=== PATIENT | male | born 1990 | race American Indian/Alaskan Native ===

== ENCOUNTER 2019-01-12 11:43 | Emergency (ER) | payer SELFPAY ==
--- NOTE | 2019-01-12 12:10 | Emergency Department Report ---
Blank Doc - Documentation Documentation: This is a -year-old male that presents with hearing voices. Stated that his v oices are telling him to kill someone. Denies SI. This initial assessment/diagnostic orders/clinical plan/treatment(s) is/are subject to change based on patient's health status, clinical progression and re- assessment by fellow clinical providers in the ED. Further treatment and workup at subsequent clinical providers discretion. Patient/guardians urged not to elope from the ED as their condition may be serious if not clinically assessed and managed. Initial orders include: 1- Patient sent to MAIN ED for further evaluation and treatment 2- police department secretary was notified to have patient be brought back [place]. 3- RN was notified to keep patient as close range and observation until room available 4- Patient presents with substantial risk of imminent harm to self, appears to be so unable to care for his/her own physical health and safety as to create an imminently life-endangering crisis, and has committed/expressed life endangering crisis to self. Due to this and other complaints, patient is put on 1013.
[2019-01-12 12:38] LABS: Basophils % (Auto) 0.7 % (0.0-1.8); Eosinophils % (Auto) 0.3 % (0.0-4.3); Hematocrit 40.8 % (35.5-45.6); Hemoglobin 14.3 gm/dl (11.8-15.2); Lymphocytes # (Auto) 0.9 K/mm3 (1.2-5.4); Lymphocytes % (Auto) 22.9 % (13.4-35.0); Mean Corpuscular HGB Conc 35 % (32-34); Mean Corpuscular Volume 92 fl (84-94); Monocytes # (Auto) 0.2 K/mm3 (0.0-0.8); Monocytes % (Auto) 5.6 % (0.0-7.3); Platelet Count 160 K/mm3 (140-440); Red Blood Count 4.46 M/mm3 (3.65-5.03); Red Cell Distribution Width 13.3 % (13.2-15.2)
[2019-01-12 12:59] LABS: BUN/Creatinine Ratio 17; Blood Urea Nitrogen 15 mg/dL (9-20); Calcium 9.7 mg/dL (8.4-10.2); Hemolysis Index 18
--- NOTE | 2019-01-12 13:55 | Emergency Department Report ---
HPI - General Chief Complaint: Psych Time Seen by Provider: 01/12/19 12:11 - HPI HPI: 28-year-old -B[place] male presents to the emergency Department through triage with complaint of a three-day history of auditory hallucinations telling him to kill someone. He says that there is no one particular person that he has been told to harm. He denies any suicidal ideations or any visual hallucinations. The patient denies any previous diagnosed psychiatric history. He denies any medical history. He denies any illicit drug use or any recent alcohol abuse. ED Past Medical Hx - Past Medical History Previous Medical History?: No - Surgical History Past Surgical History?: Yes Additional Surgical History: Right leg - Social History Smoking Status: Never Smoker Substance Use Type: None ED Review of Systems ROS: Stated complaint: HEARING VOICES Other details as noted in HPI Comment: All other systems reviewed and negative Constitutional: denies: chills, fever Eyes: denies: eye pain, vision change ENT: denies: ear pain, throat pain Respiratory: denies: cough, shortness of breath Cardiovascular: denies: chest pain, palpitations Gastrointestinal: denies: abdominal pain, vomiting Genitourinary: denies: dysuria, frequency Musculoskeletal: denies: back pain, arthralgia Skin: denies: rash, lesions Neurological: denies: headache, weakness Psychiatric: auditory hallucinations, homicidal thoughts. denies: visual hallucinations, suicidal thoughts Physical Exam - Physical Exam Vital Signs: Vital Signs 01/12/19 12:10 Temperature 98.5 F Pulse Rate 64 Respiratory 16 Rate Blood Pressure 119/55 O2 Sat by Pulse 99 Oximetry Physical Exam: GENERAL: The patient is well-developed well-nourished. HENT: Normocephalic. Atraumatic. Patient has moist mucous membranes. EYES: Extraocular motions are intact. NECK: Supple. Trachea is midline. CHEST/LUNGS: Clear to auscultation. There is no respiratory distress noted. HEART/CARDIOVASCULAR: Regular. There is no tachycardia. There is no murmur. ABDOMEN: Abdomen is soft, nontender. Patient has normal bowel sounds. There is no abdominal distention. SKIN: Skin is warm and dry. NEURO: The patient is awake, alert, and oriented. The patient is cooperative. The patient has no focal neurologic deficits. The patient has normal speech. MUSCULOSKELETAL: There is no tenderness or deformity. There is no evidence of acute injury. ED Course Vital Signs 01/12/19 12:10 Temperature 98.5 F Pulse Rate 64 Respiratory 16 Rate Blood Pressure 119/55 O2 Sat by Pulse 99 Oximetry ED Medical Decision Making - Lab Data Result diagrams: 01/12/19 12:22 01/12/19 12:22 - Medical Decision Making This patient presented to triage with complaint of auditory hallucinations, command hallucinations causing suicidal ideations. At the time of my examination he is awake, calm, oriented but does admit to the symptoms. He was made a 1013 secondary to the suicidal ideations. Vital signs stable throughout his ED course. Labs have thus far been unremarkable including CBC, metabolic panel, urine drug screen and blood alcohol level. this may be previously undiagnosed schizophrenia. Patient is medically cleared for psychiatric placement. - Differential Diagnosis schizophrenia, schizoaffective, bipolar disorder, substance abuse Critical Care Time: No Critical care attestation.: If time is entered above; I have spent that time in minutes in the direct care of this critically ill patient, excluding procedure time. ED Disposition Clinical Impression: Auditory hallucinations, Suicidal ideations Disposition: DC/TX-65 PSY HOSP/PSY UNIT Is pt being admited?: No Condition: Stable Referrals: AIDA RODRIGUEZ MD [Primary Care Provider] - 3-5 Days Time of Disposition: 15:44
[2019-01-12 14:17] LABS: Bilirubin,Urine NEG (Negative); Blood,Urine NEG (Negative); Color,Urine Yellow (Yellow); Mucus,Urine 2+ /HPF; Protein,Urine <15 mg/dL mg/dL (Negative)
[2019-01-12 14:19] LABS: Amphetamine Screen,Urine PRESUMPTIVE NEGATIVE; Benzodiazepines Screen,Urine PRESUMPTIVE NEGATIVE; Cannabinoid Screen,Urine PRESUMPTIVE NEGATIVE; Cocaine Screen,Urine PRESUMPTIVE NEGATIVE; Methadone Screen,Urine PRESUMPTIVE NEGATIVE; Opiate Screen,Urine PRESUMPTIVE NEGATIVE
--- NOTE | 2019-01-12 14:41 | Consultation ---
History of Present Illness - Reason for Consult Consult date: 01/12/19 Reason for consult: Mental Health Evaluation Requesting physician: INÉS NULL - Chief Complaint Chief complaint: "i am heating voices" - History of Present Psychiatric Illness 28 y.o. AA male who presented to the ER for command AH's. Today the patient the was calm, but preoccupied during the assessment. He stated that the voices have been active for several days telling him to kill someone. He stated, "I'm ignoring the voices. " He stated that he started hearing voices after he ran out of medication he cannot name when asked. His answers to most questions were not logical. Throughout the interview, he appeared that he was responding to some type of stimuli. Also, he had to be redirected several times to keep him on topic. At this time, the patient is a poor historian. He denies SI/HI's. Medications and Allergies Allergies Allergy/AdvReac Type Severity Reaction Status Date / Time No Known Allergies Allergy Unverified 01/12/19 11:53 Home Medications Medication Instructions Recorded Confirmed Last Taken Type No Known Home Medications [No 01/12/19 01/12/19 Unknown History Reported Home Medications] Past psychiatric history - Past Medical History Past Medical History: No medical history Past Surgical History: No surgical history - past Psychiatric treatment and history psychiatric treatment history: Hx of "mental health" per the patients. Denies a fam psy hx. - Social History Social history: Lives alone Mental Status Exam - Vital signs Last Vital Signs Temp 98.5 F 01/12/19 14:11 Pulse 60 01/12/19 14:11 Resp 18 01/12/19 14:11 BP 116/87 01/12/19 14:11 Pulse Ox 100 01/12/19 14:11 - Exam Narrative exam: MSE: Appearance: cooperative Behavior: regular eye contact Speech: regular rate and tone Mood: preoccupied Affect: congruent to mood Thought Process: circumstantial Thought Content: denies SI/HI's and VH's, paranoid Motor Activity: ambulatory Cognition: A/O x3 Insight: poor Judgment: poor Results Result Diagrams: 01/12/19 12:22 01/12/19 12:22 Abnormal lab results 01/12/19 01/12/19 01/12/19 Range/Units 12:22 12:22 12:22 WBC 4.0 L (4.5-11.0) K/mm3 MCHC 35 H (32-34) % Lymph # 0.9 L (1.2-5.4) K/mm3 Seg Neutrophils % 70.5 H (40.0-70.0) % Salicylates < 0.3 L (2.8-20.0) mg/dL Acetaminophen < 5.0 L (10.0-30.0) ug/mL All other labs normal. Assessment and Plan Assessment and plan: Impression: Unspecified Psychosis. Today the patient was cooperative, but preoccupied during the assessment. UDS is megative. DDx: Bipolar DO with psychosis, Schizophrenia Recommendation/Plan: Continue 1013 and start Zyprexa 5 mg PO HS for psychosis. Attempted to discuss possible metabolic side effects of Zyprexa with the patient. Dispo: The patient was referred to inpatient psy services. Staffed with Dr Santa Lopez.
[2019-01-13 08:13] VITALS: BP 116/75
--- NOTE | 2019-01-13 11:32 | Progress Note ---
Subjective - Reason for Consult Consult date: 01/13/19 Reason for consult: Psychiatry Follow-up - Chief Complaint Chief complaint: "I don't know what's wrong with me" 28 y.o. AA male who presented to the ER for command AH's. Today the patient the was calm, but still preoccupied during the assessment. He stated that the voices are not as active today, but he feel like something isn't right with him. He was able to state that he does take Zyprexa that was prescribed by a psychiatrist. He is vague about his overall mental health when asked. He denies SI/HI's and VH's. He denies any side effects of his medication. Mental Status Exam - Vital signs Last Vital Signs Temp 98.2 F 01/13/19 08:13 Pulse 54 L 01/13/19 08:13 Resp 18 01/13/19 08:13 BP 116/75 01/13/19 08:13 Pulse Ox 99 01/13/19 08:13 - Exam Narrative exam: MSE: Appearance: cooperative Behavior: regular eye contact Speech: regular rate and tone Mood: still preoccupied Affect: congruent to mood Thought Process: circumstantial Thought Content: denies SI/HI's and VH's, paranoid Motor Activity: ambulatory Cognition: A/O x3 Insight: poor Judgment: poor Assessment and Plan Impression: Unspecified Psychosis. Today the patient was cooperative, but still preoccupied during the assessment. UDS is negative. DDx: Bipolar DO with psychosis, Schizophrenia Recommendation/Plan: Continue 1013 and Zyprexa 5 mg PO HS for psychosis. Discussed possible metabolic side effects of Zyprexa with the patient, he verbalized understanding. Dispo: The patient was referred to inpatient psy services. Will staff with Dr Santa Lopez.
== END 2019-01-13 14:49 ==
LOC: ED 11:43 → EEVIPCON 11:43 → ED 01-13 14:49
DX: R44.0 Auditory hallucinations (principal); R45.851 Suicidal ideations
CPT/HCPCS: 36415; 80048; 80307; 81001; 85025; 99285; G0480; 80320

== ENCOUNTER 2019-01-28 19:23 | Emergency (ER) | payer OTHER ==
[2019-01-28] MEDS ORDERED: ATIVAN IM PRN (20:20)
[2019-01-28] MEDS ORDERED: HALDOL IM PRN (20:20)
--- NOTE | 2019-01-28 20:21 | Emergency Department Report ---
ED Psych HPI - General Chief Complaint: Psych Stated Complaint: SUICIDAL IDEATION Time Seen by Provider: 01/28/19 20:15 Source: patient, EMS (ems notes not available at time of chart dictation), RN notes reviewed, old records reviewed Mode of arrival: Ambulatory Limitations: No Limitations - History of Present Illness Initial Comments: This is a cooperative 28-year-old gentleman, with a history of undifferentiated psychosis, presenting with a complaint of command hallucinations, which are telling him to kill himself and hurt himself. The patient does not have a specific method in mind to harm himself. He denies physical pain. He denies other complaints. He denies intentional overdose. He is not sure what caused these symptoms. He denies physical trauma. The symptoms are constant, do not radiate anywhere, do not have exacerbating or relieving factors. MD Complaint: suicidal ideation, other -: Gradual Associated Psychiatric Symptoms: suicidal ideation, auditory hallucinations History of same: Yes Quality: constant Improves With: none Worsens With: none If Self Harm: admits thoughts of - Related Data Home Medications Medication Instructions Recorded Confirmed Last Taken No Known Home Medications [No 01/12/19 01/28/19 Unknown Reported Home Medications] Allergies Allergy/AdvReac Type Severity Reaction Status Date / Time No Known Allergies Allergy Unverified 01/12/19 11:53 ED Review of Systems ROS: Stated complaint: SUICIDAL IDEATION Other details as noted in HPI Comment: All other systems reviewed and negative Psychiatric: suicidal thoughts. denies: depression, homicidal thoughts ED Past Medical Hx - Past Medical History Hx Psychiatric Treatment: No (denies) - Surgical History Additional Surgical History: Right leg - Social History Smoking Status: Current Every Day Smoker - Medications Home Medications: Home Medications Medication Instructions Recorded Confirmed Last Taken Type No Known Home Medications [No 01/12/19 01/28/19 Unknown History Reported Home Medications] ED Physical Exam - General Limitations: No Limitations General appearance: alert, in no apparent distress - Head Head exam: Present: atraumatic, normocephalic - Eye Eye exam: Present: normal appearance, EOMI. Absent: nystagmus - ENT ENT exam: Present: normal exam, normal orophraynx, mucous membranes moist, normal external ear exam - Neck Neck exam: Present: normal inspection, full ROM. Absent: tenderness, meningismus - Respiratory Respiratory exam: Present: normal lung sounds bilaterally. Absent: respiratory distress - Cardiovascular Cardiovascular Exam: Present: regular rate, normal rhythm, normal heart sounds. Absent: bradycardia, tachycardia, irregular rhythm, systolic murmur, diastolic murmur, rubs, gallop - GI/Abdominal GI/Abdominal exam: Present: soft. Absent: distended, tenderness, guarding, rebound, rigid, pulsatile mass - Rectal Rectal exam: Present: deferred - Extremities Exam Extremities exam: Present: normal inspection, full ROM, other (2+ pulses noted in the bilateral upper, lower extremities. Compartments soft. No long bony tenderness. The pelvis is stable.). Absent: pedal edema, joint swelling, calf tenderness - Back Exam Back exam: Present: normal inspection, full ROM. Absent: tenderness, CVA tenderness (R), CVA tenderness (L), paraspinal tenderness, vertebral tenderness - Neurological Exam Neurological exam: Present: alert, oriented X3, other (Extraocular movements intact. Tongue midline. No facial droop. Facial sensation intact to light touch in the V1, V2, V3 distribution bilaterally. 5 and 5 strength in 4 extremities.. Sensation is intact to light touch in 4 extremities.). Absent: motor sensory deficit - Psychiatric Psychiatric exam: Present: flat affect - Skin Skin exam: Present: warm, dry, intact, normal color, other (numerous lesions suggestive of chronic keloids. No appearance of superinfection at this time.). Absent: rash ED Course Vital Signs 01/28/19 20:13 Temperature 98.3 F Pulse Rate 73 Respiratory 18 Rate Blood Pressure 127/68 [Left] O2 Sat by Pulse 98 Oximetry ED Medical Decision Making - Lab Data Result diagrams: 01/28/19 20:31 01/28/19 20:31 Vital Signs 01/28/19 20:13 Temperature 98.3 F Pulse Rate 73 Respiratory 18 Rate Blood Pressure 127/68 [Left] O2 Sat by Pulse 98 Oximetry Lab Results 01/28/19 01/28/19 01/28/19 Range/Units 20:31 20:31 20:31 WBC (4.5-11.0) K/mm3 RBC (3.65-5.03) M/mm3 Hgb (11.8-15.2) gm/dl Hct (35.5-45.6) % MCV (84-94) fl MCH (28-32) pg MCHC (32-34) % RDW (13.2-15.2) % Plt Count (140-440) K/mm3 Lymph % (Auto) (13.4-35.0) % Luna % (Auto) (0.0-7.3) % Eos % (Auto) (0.0-4.3) % Baso % (Auto) (0.0-1.8) % Lymph # (1.2-5.4) K/mm3 Luna # (0.0-0.8) K/mm3 Eos # (0.0-0.4) K/mm3 Baso # (0.0-0.1) K/mm3 Seg Neutrophils % (40.0-70.0) % Seg Neutrophils # (1.8-7.7) K/mm3 Sodium 140 (137-145) mmol/L Potassium 4.3 (3.6-5.0) mmol/L Chloride 100.8 (98-107) mmol/L Carbon Dioxide 28 (22-30) mmol/L Anion Gap 16 mmol/L BUN 13 (9-20) mg/dL Creatinine 1.1 (0.8-1.5) mg/dL Estimated GFR > 60 ml/min BUN/Creatinine Ratio 12 % Glucose 100 (75-100) mg/dL Calcium 9.8 (8.4-10.2) mg/dL Total Creatine Kinase (55-170) units/L Urine Color (Yellow) Urine Turbidity (Clear) Urine pH (5.0-7.0) Ur Specific [place] (1.003-1.030) Urine Protein (Negative) mg/dL Urine Glucose (UA) (Negative) mg/dL Urine Ketones (Negative) mg/dL Urine Blood (Negative) Urine Nitrite (Negative) Urine Bilirubin (Negative) Urine Urobilinogen (<2.0) mg/dL Ur Leukocyte Esterase (Negative) Urine WBC (Auto) (0.0-6.0) /HPF Urine RBC (Auto) (0.0-6.0) /HPF U Epithel Cells (Auto) (0-13.0) /HPF Urine Bacteria (Auto) (Negative) /HPF Urine Mucus /HPF Salicylates < 0.3 L (2.8-20.0) mg/dL Urine Opiates Screen Urine Methadone Screen Acetaminophen < 5.0 L (10.0-30.0) ug/mL Ur Barbiturates Screen Ur Phencyclidine Scrn Ur Amphetamines Screen U Benzodiazepines Scrn Urine Cocaine Screen U Marijuana (THC) Screen Drugs of Abuse Note Plasma/Serum Alcohol (0-0.07) % 01/28/19 01/28/19 01/28/19 Range/Units 20:31 20:31 20:31 WBC 2.8 L (4.5-11.0) K/mm3 RBC 4.55 (3.65-5.03) M/mm3 Hgb 14.4 (11.8-15.2) gm/dl Hct 41.6 (35.5-45.6) % MCV 91 (84-94) fl MCH 32 (28-32) pg MCHC 35 H (32-34) % RDW 13.1 L (13.2-15.2) % Plt Count 164 (140-440) K/mm3 Lymph % (Auto) 30.7 (13.4-35.0) % Luna % (Auto) 4.6 (0.0-7.3) % Eos % (Auto) 2.1 (0.0-4.3) % Baso % (Auto) 0.7 (0.0-1.8) % Lymph # 0.9 L (1.2-5.4) K/mm3 Luna # 0.1 (0.0-0.8) K/mm3 Eos # 0.1 (0.0-0.4) K/mm3 Baso # 0.0 (0.0-0.1) K/mm3 Seg Neutrophils % 61.9 (40.0-70.0) % Seg Neutrophils # 1.7 L (1.8-7.7) K/mm3 Sodium (137-145) mmol/L Potassium (3.6-5.0) mmol/L Chloride (98-107) mmol/L Carbon Dioxide (22-30) mmol/L Anion Gap mmol/L BUN (9-20) mg/dL Creatinine (0.8-1.5) mg/dL Estimated GFR ml/min BUN/Creatinine Ratio % Glucose (75-100) mg/dL Calcium (8.4-10.2) mg/dL Total Creatine Kinase 149 (55-170) units/L Urine Color (Yellow) Urine Turbidity (Clear) Urine pH (5.0-7.0) Ur Specific [place] (1.003-1.030) Urine Protein (Negative) mg/dL Urine Glucose (UA) (Negative) mg/dL Urine Ketones (Negative) mg/dL Urine Blood (Negative) Urine Nitrite (Negative) Urine Bilirubin (Negative) Urine Urobilinogen (<2.0) mg/dL Ur Leukocyte Esterase (Negative) Urine WBC (Auto) (0.0-6.0) /HPF Urine RBC (Auto) (0.0-6.0) /HPF U Epithel Cells (Auto) (0-13.0) /HPF Urine Bacteria (Auto) (Negative) /HPF Urine Mucus /HPF Salicylates (2.8-20.0) mg/dL Urine Opiates Screen Urine Methadone Screen Acetaminophen (10.0-30.0) ug/mL Ur Barbiturates Screen Ur Phencyclidine Scrn Ur Amphetamines Screen U Benzodiazepines Scrn Urine Cocaine Screen U Marijuana (THC) Screen Drugs of Abuse Note Plasma/Serum Alcohol < 0.01 (0-0.07) % 01/28/19 01/28/19 Range/Units 20:39 20:39 WBC (4.5-11.0) K/mm3 RBC (3.65-5.03) M/mm3 Hgb (11.8-15.2) gm/dl Hct (35.5-45.6) % MCV (84-94) fl MCH (28-32) pg MCHC (32-34) % RDW (13.2-15.2) % Plt Count (140-440) K/mm3 Lymph % (Auto) (13.4-35.0) % Luna % (Auto) (0.0-7.3) % Eos % (Auto) (0.0-4.3) % Baso % (Auto) (0.0-1.8) % Lymph # (1.2-5.4) K/mm3 Luna # (0.0-0.8) K/mm3 Eos # (0.0-0.4) K/mm3 Baso # (0.0-0.1) K/mm3 Seg Neutrophils % (40.0-70.0) % Seg Neutrophils # (1.8-7.7) K/mm3 Sodium (137-145) mmol/L Potassium (3.6-5.0) mmol/L Chloride (98-107) mmol/L Carbon Dioxide (22-30) mmol/L Anion Gap mmol/L BUN (9-20) mg/dL Creatinine (0.8-1.5) mg/dL Estimated GFR ml/min BUN/Creatinine Ratio % Glucose (75-100) mg/dL Calcium (8.4-10.2) mg/dL Total Creatine Kinase (55-170) units/L Urine Color Yellow (Yellow) Urine Turbidity Clear (Clear) Urine pH 5.0 (5.0-7.0) Ur Specific [place] 1.033 H (1.003-1.030) Urine Protein <15 mg/dl (Negative) mg/dL Urine Glucose (UA) Neg (Negative) mg/dL Urine Ketones Tr (Negative) mg/dL Urine Blood Neg (Negative) Urine Nitrite Neg (Negative) Urine Bilirubin Neg (Negative) Urine Urobilinogen 2.0 (<2.0) mg/dL Ur Leukocyte Esterase Neg (Negative) Urine WBC (Auto) 1.0 (0.0-6.0) /HPF Urine RBC (Auto) 1.0 (0.0-6.0) /HPF U Epithel Cells (Auto) 1.0 (0-13.0) /HPF Urine Bacteria (Auto) 1+ (Negative) /HPF Urine Mucus 3+ /HPF Salicylates (2.8-20.0) mg/dL Urine Opiates Screen Presumptive negative Urine Methadone Screen Presumptive negative Acetaminophen (10.0-30.0) ug/mL Ur Barbiturates Screen Presumptive negative Ur Phencyclidine Scrn Presumptive negative Ur Amphetamines Screen Presumptive negative U Benzodiazepines Scrn Presumptive negative Urine Cocaine Screen Presumptive negative U Marijuana (THC) Screen Presumptive negative Drugs of Abuse Note Disclamer Plasma/Serum Alcohol (0-0.07) % - Medical Decision Making Differential diagnosis, including but not limited to: Psychosis, medical clearance for psychiatric placement Assessment and plan: 28-year-old gentleman with endorsement of command hallucinations, inciting the patient to harm himself. He has no medical complaints at this time. He is afebrile with reassuring vital signs. Physical exam is unremarkable. Screening laboratory studies reviewed and appreciated. Urinalysis is reviewed and appreciated; patient does not endorse any urinary symptoms, he is young and presumably immunocompetent, and therefore, does not require empiric antibiotic therapy. Minimal leukopenia reviewed and appreciat ed, in the context of no additional symptoms, or objective physical exam findings, this incidental finding may be followed up as an outpatient by her primary care physician. The patient at this point in time does not appear to have an immediate medical contraindication to psychiatric admission, evaluation, consultation and placement. The psychiatric team has been informed. Critical care attestation.: If time is entered above; I have spent that time in minutes in the direct care of this critically ill patient, excluding procedure time. ED Disposition Clinical Impression: Medical clearance for psychiatric admission Disposition: DC/TX-65 PSY HOSP/PSY UNIT Is pt being admited?: No Does the pt Need Aspirin: No Condition: Good
[2019-01-28 21:01] LABS: Bacteria,Urine 1+ /HPF (Negative); Bilirubin,Urine NEG (Negative); Blood,Urine NEG (Negative); Color,Urine Yellow (Yellow); Mucus,Urine 3+ /HPF; Protein,Urine <15 mg/dL mg/dL (Negative)
[2019-01-28 21:04] LABS: Basophils % (Auto) 0.7 % (0.0-1.8); Eosinophils # (Auto) 0.1 K/mm3 (0.0-0.4); Eosinophils % (Auto) 2.1 % (0.0-4.3); Hematocrit 41.6 % (35.5-45.6); Hemoglobin 14.4 gm/dl (11.8-15.2); Lymphocytes # (Auto) 0.9 K/mm3 (1.2-5.4); Lymphocytes % (Auto) 30.7 % (13.4-35.0); Mean Corpuscular HGB Conc 35 % (32-34); Mean Corpuscular Volume 91 fl (84-94); Monocytes # (Auto) 0.1 K/mm3 (0.0-0.8); Monocytes % (Auto) 4.6 % (0.0-7.3); Platelet Count 164 K/mm3 (140-440); Red Blood Count 4.55 M/mm3 (3.65-5.03); Red Cell Distribution Width 13.1 % (13.2-15.2)
[2019-01-28 21:06] LABS: BUN/Creatinine Ratio 12; Blood Urea Nitrogen 13 mg/dL (9-20); Calcium 9.8 mg/dL (8.4-10.2); Hemolysis Index 6
[2019-01-28 21:08] LABS: Amphetamine Screen,Urine PRESUMPTIVE NEGATIVE; Benzodiazepines Screen,Urine PRESUMPTIVE NEGATIVE; Cannabinoid Screen,Urine PRESUMPTIVE NEGATIVE; Cocaine Screen,Urine PRESUMPTIVE NEGATIVE; Methadone Screen,Urine PRESUMPTIVE NEGATIVE; Opiate Screen,Urine PRESUMPTIVE NEGATIVE
--- NOTE | 2019-01-29 09:54 | Consultation ---
History of Present Illness - Reason for Consult Consult date: 01/29/19 Reason for consult: Mental Health Evaluation Requesting physician: JOSUÉ RAZO - Chief Complaint Chief complaint: "I am hearing voices" - History of Present Psychiatric Illness 28 y.o. AA male who presented to the ER for AH"s telling him to kill himself. This patient is known to me. Today the patient was somewhat cooperative during the assessment. He appears to be preoccupied. He stated that the voices are "overwhelming" so he decided to come to the ER. He stated that the voices was telling to kill himself yesterday. He stated that the voices are still active at thus time, but he would not confirm or deny if the voices are telling him to kill himself. He stated that he "ran out" of his Zyprexa. He denies HI and VH's. He stated, 'I don't know if I want to kill myself." He acknowledge a poor appetite, but denies erratic sleep. He denies recreational dirug use and alcohol consumption (etoh). Medications and Allergies Allergies Allergy/AdvReac Type Severity Reaction Status Date / Time No Known Allergies Allergy Unverified 01/12/19 11:53 Home Medications Medication Instructions Recorded Confirmed Last Taken Type No Known Home Medications [No 01/12/19 01/28/19 Unknown History Reported Home Medications] Active Meds: Active Medications Haloperidol Lactate (Haldol) 5 mg IM Q6HR PRN PRN Reason: Agitation Lorazepam (Ativan) 2 mg IM Q4HR PRN PRN Reason: Agitation Past psychiatric history - Past Medical History Past Medical History: other (dermatologiy disease ) Past Surgical History: No surgical history - past Psychiatric treatment and history psychiatric treatment history: Inpatient osy services in the past. Denies a fam psy hx. - Social History Social history: lives with family Mental Status Exam - Vital signs Last Vital Signs Temp 97.9 F 01/29/19 08:32 Pulse 59 L 01/29/19 08:32 Resp 18 01/29/19 08:32 BP 105/43 01/29/19 08:32 Pulse Ox 98 01/29/19 08:32 - Exam Narrative exam: MSE: Appearance: cooperative Behavior: poor eye contact Speech: regular rate and tone Mood: "okay" preoccupied Affect: flat Thought Process: circumstantial Thought Content: denies HI's and VH's, paranoid Motor Activity: ambulatory Cognition: A/O x3 Insight: poor Judgment: poor Results Result Diagrams: 01/28/19 20:31 01/28/19 20:31 Abnormal lab results 01/28/19 01/28/19 01/28/19 Range/Units 20:31 20:31 20:31 WBC 2.8 L (4.5-11.0) K/mm3 MCHC 35 H (32-34) % RDW 13.1 L (13.2-15.2) % Lymph # 0.9 L (1.2-5.4) K/mm3 Seg Neutrophils # 1.7 L (1.8-7.7) K/mm3 Ur Specific [place] (1.003-1.030) Salicylates < 0.3 L (2.8-20.0) mg/dL Acetaminophen < 5.0 L (10.0-30.0) ug/mL 01/28/19 Range/Units 20:39 WBC (4.5-11.0) K/mm3 MCHC (32-34) % RDW (13.2-15.2) % Lymph # (1.2-5.4) K/mm3 Seg Neutrophils # (1.8-7.7) K/mm3 Ur Specific [place] 1.033 H (1.003-1.030) Salicylates (2.8-20.0) mg/dL Acetaminophen (10.0-30.0) ug/mL All other labs normal. Assessment and Plan Assessment and plan: Impression: Unspecified Psychosis. Today the patient was somewhat cooperative during the assessment. UDS is negative. WBC 2.8. DDx: Bipolar DO with psychosis, Schizophrenia Recommendation/Plan: Continue 1013 and start Zyprexa Zydis 5 mg PO HS for psychosis (This is a ODT tablet). Discussed possible metabolic side effects of Zyprexa with the patient, he verbalized understanding. The benefits of an antipsyhcotic outweigh the risk at this time reference his WBC. The patient is psychotic. Dispo: The patient was referred to inpatient psy services. Will staff with Dr Santa Lopez.
[2019-01-29 16:35] VITALS: BP 110/52
== END 2019-01-29 23:54 ==
LOC: ED 19:23
DX: F29 Unspecified psychosis not due to a substance or known physiological condition (principal); F17.200 Nicotine dependence, unspecified, uncomplicated
CPT/HCPCS: 36415; 80048; 80307; 81001; 82550; 85025; 99285; G0480; 80320

== ENCOUNTER 2019-02-08 05:08 | Emergency (ER) | payer SELFPAY ==
[2019-02-08 05:43] LABS: Basophils % (Auto) 0.6 % (0.0-1.8); Eosinophils # (Auto) 0.1 K/mm3 (0.0-0.4); Eosinophils % (Auto) 2.3 % (0.0-4.3); Hematocrit 41.7 % (35.5-45.6); Hemoglobin 14.3 gm/dl (11.8-15.2); Lymphocytes # (Auto) 1.5 K/mm3 (1.2-5.4); Lymphocytes % (Auto) 33.9 % (13.4-35.0); Mean Corpuscular HGB Conc 34 % (32-34); Mean Corpuscular Volume 93 fl (84-94); Monocytes # (Auto) 0.4 K/mm3 (0.0-0.8); Monocytes % (Auto) 7.9 % (0.0-7.3); Platelet Count 187 K/mm3 (140-440); Red Cell Distribution Width 13.2 % (13.2-15.2)
[2019-02-08 05:54] LABS: BUN/Creatinine Ratio 17; Blood Urea Nitrogen 17 mg/dL (9-20); Calcium 9.2 mg/dL (8.4-10.2); Hemolysis Index 7
--- NOTE | 2019-02-08 06:20 | Emergency Department Report ---
ED General Adult HPI - General Chief complaint: Psych Stated complaint: MH EVAL/HEARING VOICES/SUICIDAL Time Seen by Provider: 02/08/19 06:08 Source: patient Mode of arrival: Ambulatory Limitations: No Limitations - History of Present Illness Initial comments: Patient presents to the emergency department with a chief complaint of him voices and wanting to kill himself. Patient has a history of schizophrenia and states that he does not take his medications. Patient states that he walked here from [place] where he is staying at an extended [employer]. Patient states he has a job at a [employer] and this morning would be the last day that his [employer] was paid for -: Sudden Severity scale (0 -10): 0 Improves with: none Worsens with: none Associated Symptoms: denies other symptoms Treatments Prior to Arrival: none - Related Data Home Medications Medication Instructions Recorded Confirmed Last Taken OLANzapine [ZyPREXA] 10 mg PO QHS 02/08/19 02/08/19 Unknown Allergies Allergy/AdvReac Type Severity Reaction Status Date / Time No Known Allergies Allergy Unverified 01/12/19 11:53 ED Review of Systems ROS: Stated complaint: MH EVAL/HEARING VOICES/SUICIDAL Other details as noted in HPI Constitutional: denies: chills, fever Eyes: denies: eye pain, eye discharge, vision change ENT: denies: ear pain, throat pain Respiratory: denies: cough, shortness of breath, wheezing Cardiovascular: denies: chest pain, palpitations Endocrine: no symptoms reported Gastrointestinal: denies: abdominal pain, nausea, diarrhea Genitourinary: denies: urgency, dysuria Musculoskeletal: denies: back pain, joint swelling, arthralgia Skin: denies: rash, lesions Neurological: denies: headache, weakness, paresthesias Psychiatric: auditory hallucinations, suicidal thoughts. denies: anxiety, d epression, visual hallucinations Hematological/Lymphatic: denies: easy bleeding, easy bruising ED Past Medical Hx - Past Medical History Previous Medical History?: Yes Hx Psychiatric Treatment: Yes (hallucinations/ SI) - Surgical History Past Surgical History?: Yes Additional Surgical History: Right leg - Social History Smoking Status: Current Every Day Smoker Substance Use Type: None - Medications Home Medications: Home Medications Medication Instructions Recorded Confirmed Last Taken Type OLANzapine [ZyPREXA] 10 mg PO QHS 02/08/19 02/08/19 Unknown History ED Physical Exam - General Limitations: No Limitations General appearance: alert, in no apparent distress - Head Head exam: Present: atraumatic, normocephalic - Eye Eye exam: Present: normal appearance, PERRL - ENT ENT exam: Present: mucous membranes moist - Neck Neck exam: Present: normal inspection - Respiratory Respiratory exam: Present: normal lung sounds bilaterally. Absent: respiratory distress, wheezes, rales - Cardiovascular Cardiovascular Exam: Present: regular rate, normal rhythm. Absent: systolic murmur, diastolic murmur, rubs, gallop - GI/Abdominal GI/Abdominal exam: Present: soft, normal bowel sounds - Rectal Rectal exam: Present: deferred - Extremities Exam Extremities exam: Present: normal inspection - Back Exam Back exam: Present: normal inspection - Neurological Exam Neurological exam: Present: alert, oriented X3, CN II-XII intact. Absent: motor sensory deficit - Psychiatric Psychiatric exam: Present: suicidal ideation - Skin Skin exam: Present: warm, dry, intact, normal color. Absent: rash ED Course Vital Signs 02/08/19 02/08/19 02/08/19 05:20 08:14 08:42 Temperature 98.0 F 97.8 F Pulse Rate 76 61 Respiratory 18 18 18 Rate Blood Pressure 113/39 Blood Pressure 114/53 [Right] O2 Sat by Pulse 100 99 99 Oximetry 02/08/19 13:53 Temperature 97.9 F Pulse Rate 76 Respiratory 16 Rate Blood Pressure Blood Pressure 120/76 [Right] O2 Sat by Pulse 100 Oximetry ED Medical Decision Making - Lab Data Result diagrams: 02/08/19 05:32 02/08/19 05:35 Lab Results 02/08/19 02/08/19 02/08/19 Range/Units 05:32 05:35 05:35 WBC 4.5 (4.5-11.0) K/mm3 RBC 4.50 (3.65-5.03) M/mm3 Hgb 14.3 (11.8-15.2) gm/dl Hct 41.7 (35.5-45.6) % MCV 93 (84-94) fl MCH 32 (28-32) pg MCHC 34 (32-34) % RDW 13.2 (13.2-15.2) % Plt Count 187 (140-440) K/mm3 Lymph % (Auto) 33.9 (13.4-35.0) % Reagan % (Auto) 7.9 H (0.0-7.3) % Eos % (Auto) 2.3 (0.0-4.3) % Baso % (Auto) 0.6 (0.0-1.8) % Lymph # 1.5 (1.2-5.4) K/mm3 Reagan # 0.4 (0.0-0.8) K/mm3 Eos # 0.1 (0.0-0.4) K/mm3 Baso # 0.0 (0.0-0.1) K/mm3 Seg Neutrophils % 55.3 (40.0-70.0) % Seg Neutrophils # 2.5 (1.8-7.7) K/mm3 Sodium 140 (137-145) mmol/L Potassium 3.6 (3.6-5.0) mmol/L Chloride 104.1 (98-107) mmol/L Carbon Dioxide 24 (22-30) mmol/L Anion Gap 16 mmol/L BUN 17 (9-20) mg/dL Creatinine 1.0 (0.8-1.5) mg/dL Estimated GFR > 60 ml/min BUN/Creatinine Ratio 17 % Glucose 91 (75-100) mg/dL Calcium 9.2 (8.4-10.2) mg/dL Urine Color (Yellow) Urine Turbidity (Clear) Urine pH (5.0-7.0) Ur Specific [place] (1.003-1.030) Urine Protein (Negative) mg/dL Urine Glucose (UA) (Negative) mg/dL Urine Ketones (Negative) mg/dL Urine Blood (Negative) Urine Nitrite (Negative) Urine Bilirubin (Negative) Urine Urobilinogen (<2.0) mg/dL Ur Leukocyte Esterase (Negative) Urine WBC (Auto) (0.0-6.0) /HPF Urine RBC (Auto) (0.0-6.0) /HPF Urine Mucus /HPF Salicylates (2.8-20.0) mg/dL Urine Opiates Screen Urine Methadone Screen Acetaminophen (10.0-30.0) ug/mL Ur Barbiturates Screen Ur Phencyclidine Scrn Ur Amphetamines Screen U Benzodiazepines Scrn Urine Cocaine Screen U Marijuana (THC) Screen Drugs of Abuse Note Plasma/Serum Alcohol < 0.01 (0-0.07) % 07/10/19 07/10/19 07/10/19 Range/Units 05:36 05:36 05:54 WBC (4.5-11.0) K/mm3 RBC (3.65-5.03) M/mm3 Hgb (11.8-15.2) gm/dl Hct (35.5-45.6) % MCV (84-94) fl MCH (28-32) pg MCHC (32-34) % RDW (13.2-15.2) % Plt Count (140-440) K/mm3 Lymph % (Auto) (13.4-35.0) % Reagan % (Auto) (0.0-7.3) % Eos % (Auto) (0.0-4.3) % Baso % (Auto) (0.0-1.8) % Lymph # (1.2-5.4) K/mm3 Reagan # (0.0-0.8) K/mm3 Eos # (0.0-0.4) K/mm3 Baso # (0.0-0.1) K/mm3 Seg Neutrophils % (40.0-70.0) % Seg Neutrophils # (1.8-7.7) K/mm3 Sodium (137-145) mmol/L Potassium (3.6-5.0) mmol/L Chloride (98-107) mmol/L Carbon Dioxide (22-30) mmol/L Anion Gap mmol/L BUN (9-20) mg/dL Creatinine (0.8-1.5) mg/dL Estimated GFR ml/min BUN/Creatinine Ratio % Glucose (75-100) mg/dL Calcium (8.4-10.2) mg/dL Urine Color Yellow (Yellow) Urine Turbidity Clear (Clear) Urine pH 5.0 (5.0-7.0) Ur Specific [place] 1.030 (1.003-1.030) Urine Protein <15 mg/dl (Negative) mg/dL Urine Glucose (UA) Neg (Negative) mg/dL Urine Ketones Neg (Negative) mg/dL Urine Blood Neg (Negative) Urine Nitrite Neg (Negative) Urine Bilirubin Neg (Negative) Urine Urobilinogen < 2.0 (<2.0) mg/dL Ur Leukocyte Esterase Neg (Negative) Urine WBC (Auto) 1.0 (0.0-6.0) /HPF Urine RBC (Auto) 3.0 (0.0-6.0) /HPF Urine Mucus Few /HPF Salicylates < 0.3 L (2.8-20.0) mg/dL Urine Opiates Screen Urine Methadone Screen Acetaminophen < 5.0 L (10.0-30.0) ug/mL Ur Barbiturates Screen Ur Phencyclidine Scrn Ur Amphetamines Screen U Benzodiazepines Scrn Urine Cocaine Screen U Marijuana (THC) Screen Drugs of Abuse Note Plasma/Serum Alcohol (0-0.07) % 02/08/19 Range/Units 05:54 WBC (4.5-11.0) K/mm3 RBC (3.65-5.03) M/mm3 Hgb (11.8-15.2) gm/dl Hct (35.5-45.6) % MCV (84-94) fl MCH (28-32) pg MCHC (32-34) % RDW (13.2-15.2) % Plt Count (140-440) K/mm3 Lymph % (Auto) (13.4-35.0) % Reagan % (Auto) (0.0-7.3) % Eos % (Auto) (0.0-4.3) % Baso % (Auto) (0.0-1.8) % Lymph # (1.2-5.4) K/mm3 Reagan # (0.0-0.8) K/mm3 Eos # (0.0-0.4) K/mm3 Baso # (0.0-0.1) K/mm3 Seg Neutrophils % (40.0-70.0) % Seg Neutrophils # (1.8-7.7) K/mm3 Sodium (137-145) mmol/L Potassium (3.6-5.0) mmol/L Chloride (98-107) mmol/L Carbon Dioxide (22-30) mmol/L Anion Gap mmol/L BUN (9-20) mg/dL Creatinine (0.8-1.5) mg/dL Estimated GFR ml/min BUN/Creatinine Ratio % Glucose (75-100) mg/dL Calcium (8.4-10.2) mg/dL Urine Color (Yellow) Urine Turbidity (Clear) Urine pH (5.0-7.0) Ur Specific [place] (1.003-1.030) Urine Protein (Negative) mg/dL Urine Glucose (UA) (Negative) mg/dL Urine Ketones (Negative) mg/dL Urine Blood (Negative) Urine Nitrite (Negative) Urine Bilirubin (Negative) Urine Urobilinogen (<2.0) mg/dL Ur Leukocyte Esterase (Negative) Urine WBC (Auto) (0.0-6.0) /HPF Urine RBC (Auto) (0.0-6.0) /HPF Urine Mucus /HPF Salicylates (2.8-20.0) mg/dL Urine Opiates Screen Presumptive negative Urine Methadone Screen Presumptive negative Acetaminophen (10.0-30.0) ug/mL Ur Barbiturates Screen Presumptive negative Ur Phencyclidine Scrn Presumptive negative Ur Amphetamines Screen Presumptive negative U Benzodiazepines Scrn Presumptive negative Urine Cocaine Screen Presumptive negative U Marijuana (THC) Screen Presumptive negative Drugs of Abuse Note Disclamer Plasma/Serum Alcohol (0-0.07) % - Medical Decision Making 1013 applied awaiting psychiatric evaluation Critical care attestation.: If time is entered above; I have spent that time in minutes in the direct care of this critically ill patient, excluding procedure time. ED Disposition Clinical Impression: Auditory hallucinations, Suicidal ideation Disposition: DC/TX-65 PSY HOSP/PSY UNIT Is pt being admited?: No Does the pt Need Aspirin: No Condition: Stable Referrals: AIDA RODRIGUEZ MD [Primary Care Provider] - 3-5 Days
[2019-02-08 06:49] LABS: Bilirubin,Urine NEG (Negative); Blood,Urine NEG (Negative); Color,Urine Yellow (Yellow); Mucus,Urine FEW /HPF; Protein,Urine <15 mg/dL mg/dL (Negative); Urobilinogen,Urine < 2.0 mg/dL (<2.0)
[2019-02-08 07:01] LABS: Amphetamine Screen,Urine PRESUMPTIVE NEGATIVE; Benzodiazepines Screen,Urine PRESUMPTIVE NEGATIVE; Cannabinoid Screen,Urine PRESUMPTIVE NEGATIVE; Cocaine Screen,Urine PRESUMPTIVE NEGATIVE; Methadone Screen,Urine PRESUMPTIVE NEGATIVE; Opiate Screen,Urine PRESUMPTIVE NEGATIVE
--- NOTE | 2019-02-09 12:42 | Consultation ---
History of Present Illness - Reason for Consult Consult date: 02/09/19 Reason for consult: Mental Health Evaluation Requesting physician: FRANCOIS DE LA CRUZ - Chief Complaint Chief complaint: 'I am hearing voices again" - History of Present Psychiatric Illness 28 y.o. AA male who presented to the ER for AH's and SI's. This patient is known to me. Today the patient was calm during the assessment. He stated that he is hearing voices again that are telling him to kill himself. He stated that he haven't taken his Zyprexa since being discharged from the mental health facility recently. He could not elaborate more about his mental health when asked. He stated that the voices are "loud and overwhelming." He would not confirm or deny SI's when asked. He appears that he was responding to some type of stimuli throughout the interview. He denies HI's and VH's. He denies erratic sleep and a poor appetite. He denied recreational drug use and alcohol consumption (etoh). Medications and Allergies Allergies Allergy/AdvReac Type Severity Reaction Status Date / Time No Known Allergies Allergy Unverified 01/12/19 11:53 Home Medications Medication Instructions Recorded Confirmed Last Taken Type OLANzapine [ZyPREXA] 10 mg PO QHS 02/08/19 02/08/19 Unknown History Past psychiatric history - Past Medical History Past Medical History: other (Skin Disorder) Past Surgical History: No surgical history - past Psychiatric treatment and history psychiatric treatment history: Several inpatient psy services. Denies a fam psy hx. - Social History Social history: lives with family Mental Status Exam - Vital signs Last Vital Signs Temp 97.7 F 02/09/19 07:00 Pulse 54 L 02/09/19 07:00 Resp 18 02/09/19 07:00 BP 109/62 02/09/19 07:00 Pulse Ox 100 02/09/19 07:00 - Exam Narrative exam: MSE: Appearance: calm Behavior: poor eye contact Speech: regular rate and tone Mood: "okay" Affect: flat Thought Process: circumstantial Thought Content: denies HI's and VH's, somewhat paranoid Motor Activity: ambulatory Cognition: A/O x3 Insight: poor Judgment: poor Results Result Diagrams: 02/08/19 05:32 02/08/19 05:35 All other labs normal. Assessment and Plan Assessment and plan: Impression: Unspecified Psychosis. Today the patient was calm during the assessment. UDS is negative. DDx: Bipolar DO with psychosis, Schizophrenia, Schizoaffective DO Recommendation/Plan: Continue 1013 and start Zyprexa 5 mg PO HS for psychosis. Discussed possible metabolic side effects of Zyprexa with the patient, he verbalized understanding. Dispo: The patient was referred to inpatient psy services. Will staff with Dr Santa Lopez.
[2019-02-09 20:06] VITALS: BP 105/65
== END 2019-02-10 01:53 ==
LOC: EEVIPCON 05:08 → ED 05:08
DX: F20.9 Schizophrenia, unspecified (principal); F17.200 Nicotine dependence, unspecified, uncomplicated
CPT/HCPCS: 36415; 80048; 80307; 81001; 85025; 99285; G0480; 80320

== ENCOUNTER 2019-02-21 13:46 | Emergency (ER) | payer SELFPAY ==
[2019-02-21 15:26] LABS: Bilirubin,Urine NEG (Negative); Blood,Urine NEG (Negative); Color,Urine Yellow (Yellow); Mucus,Urine 1+ /HPF; Protein,Urine <15 mg/dL mg/dL (Negative); WBC,Urine < 1.0 /HPF (0.0-6.0)
[2019-02-21 15:39] LABS: Amphetamine Screen,Urine PRESUMPTIVE NEGATIVE; Benzodiazepines Screen,Urine PRESUMPTIVE NEGATIVE; Cannabinoid Screen,Urine PRESUMPTIVE NEGATIVE; Cocaine Screen,Urine PRESUMPTIVE NEGATIVE; Methadone Screen,Urine PRESUMPTIVE NEGATIVE; Opiate Screen,Urine PRESUMPTIVE NEGATIVE
[2019-02-21 15:44] LABS: Hematocrit 41.9 % (35.5-45.6); Hemoglobin 14.5 gm/dl (11.8-15.2); Mean Corpuscular HGB Conc 35 % (32-34); Mean Corpuscular Volume 92 fl (84-94); Platelet Count 156 K/mm3 (140-440); Red Blood Count 4.56 M/mm3 (3.65-5.03)
[2019-02-21 16:03] LABS: Alanine Aminotransferase 20 units/L (7-56); Albumin 4.1 g/dL (3.9-5); BUN/Creatinine Ratio 17; Blood Urea Nitrogen 15 mg/dL (9-20); Calcium 9.3 mg/dL (8.4-10.2); Hemolysis Index 8
--- NOTE | 2019-02-21 18:04 | Emergency Department Report ---
ED Psych HPI - General Chief Complaint: Psych Stated Complaint: SUICIDAL Time Seen by Provider: 02/21/19 15:14 Source: patient Mode of arrival: Ambulatory - History of Present Illness Initial Comments: 28-year-old male with previous history of psychosis presents to ED with compla ins of command auditory hallucinations to kill himself. Patient denies having a plan. Denies homicidal ideations. MD Complaint: suicidal ideation -: days(s) (3) Associated Psychiatric Symptoms: suicidal ideation, auditory hallucinations History of same: Yes Improves With: none Worsens With: none Treatments Prior to Arrival: none If Self Harm: admits thoughts of - Related Data Home Medications Medication Instructions Recorded Confirmed Last Taken OLANzapine [ZyPREXA] 10 mg PO QHS 02/08/19 02/22/19 Unknown Allergies Allergy/AdvReac Type Severity Reaction Status Date / Time No Known Allergies Allergy Verified 02/21/19 13:49 ED Review of Systems ROS: Stated complaint: SUICIDAL Other details as noted in HPI Comment: All other systems reviewed and negative Psychiatric: auditory hallucinations, suicidal thoughts. denies: visual hallucinations, homicidal thoughts ED Past Medical Hx - Past Medical History Hx Psychiatric Treatment: Yes (hallucinations/ SI) - Surgical History Additional Surgical History: Right leg - Social History Smoking Status: Current Every Day Smoker Substance Use Type: None - Medications Home Medications: Home Medications Medication Instructions Recorded Confirmed Last Taken Type OLANzapine [ZyPREXA] 10 mg PO QHS 02/08/19 02/22/19 Unknown History ED Physical Exam - General Limitations: No Limitations General appearance: alert, in no apparent distress - Head Head exam: Present: atraumatic, normocephalic - Eye Eye exam: Present: normal appearance - ENT ENT exam: Present: mucous membranes moist - Neck Neck exam: Present: normal inspection - Respiratory Respiratory exam: Present: normal lung sounds bilaterally. Absent: respiratory distress - Cardiovascular Cardiovascular Exam: Present: regular rate, normal rhythm - GI/Abdominal GI/Abdominal exam: Absent: distended - Extremities Exam Extremities exam: Present: normal inspection - Neurological Exam Neurological exam: Present: alert, oriented X3, CN II-XII intact. Absent: motor sensory deficit - Psychiatric Psychiatric exam: Present: normal affect, normal mood - Skin Skin exam: Present: warm, dry, intact, normal color ED Course Vital Signs 02/21/19 02/21/19 02/21/19 13:52 14:17 16:00 Temperature 98 F 98 F Pulse Rate 81 81 Respiratory 19 18 18 Rate Blood Pressure 117/61 117/61 [Left] O2 Sat by Pulse 99 99 100 Oximetry 02/21/19 02/21/19 02/22/19 17:00 18:30 02:56 Temperature 97.8 F 97.7 F Pulse Rate 60 69 67 Respiratory 19 17 18 Rate Blood Pressure 96/36 100/57 103/62 [Left] O2 Sat by Pulse 99 100 98 Oximetry 02/22/19 02/22/19 02/23/19 09:22 15:00 01:00 Temperature 98.3 F 98.8 F 97.7 F Pulse Rate 63 67 72 Respiratory 18 18 20 Rate Blood Pressure 106/52 115/54 116/49 [Left] O2 Sat by Pulse 99 98 98 Oximetry 02/23/19 07:48 Temperature 97.6 F Pulse Rate 69 Respiratory 18 Rate Blood Pressure 105/62 [Left] O2 Sat by Pulse 100 Oximetry ED Medical Decision Making - Lab Data Result diagrams: 02/21/19 15:23 02/21/19 15:23 - Medical Decision Making 24-year-old male reporting auditory hallucinations, suicidal ideations. Patient placed on a 1013. Vital signs are normal. WBCs mildly decreased, this has been present in previous labwork. Patient is still medically clear for mental health evaluation. Will dispo per psych. - Differential Diagnosis psychosis Critical care attestation.: If time is entered above; I have spent that time in minutes in the direct care of this critically ill patient, excluding procedure time. ED Disposition Clinical Impression: Auditory hallucinations, Suicidal ideation Disposition: DC/TX-65 PSY HOSP/PSY UNIT Is pt being admited?: No Condition: Stable Referrals: AIDA RODRIGUEZ MD [Primary Care Provider] - 3-5 Days
[2019-02-21 19:36] LABS: Basophils % (Manual) 0 % (0.0-1.8); Total Cells Counted 100
[2019-02-21 19:37] LABS: Anisocytosis Few; Platelet Estimate Consistent w Auto
--- NOTE | 2019-02-22 13:50 | Consultation ---
History of Present Illness - Reason for Consult Consult date: 02/22/19 Reason for consult: Initial Psychiatric Evaluation - Chief Complaint Chief complaint: " I was hearing voices telling me to kill myself" - History of Present Psychiatric Illness Patient is a 28 year old male that presents to the emergency ro with psychosis and suicidal ideations. Patient has a PPHx of schizoaffective disorder, bipolar type. Today the patient is calm and cooperative during the assessment. He reports command auditory hallucinations x 3 days. Per patient " the voices are telling me to kill myself." Patient reports medication compliance (Concerta, Zyprexa). He endorses decrease sleep, good appetite, good sleep, and good energy. He continues to report auditory hallucinations and paranoid delusions. Patient verbalizes that his friends are out to harm him. He denies SI/HI's. Current Psychiatric Medications: Concerta 10mg po QAM-inappropriate dose (?), Zyprexa 10mg po QHS. Past Psychiatric History: schizoaffective disorder, bipolar type (2019 ); 1 previous inpatient psychiatric hospitalization ( [place], 2018); outpatient psychiatrist " I don't now his name"; no previous suicide attempts. Past Psychiatric Medication Trials: Benadryl - effective, Risperdal - effective. History of Alcohol/Drug Abuse: Patient denies alcohol/drug abuse. UDs negative. History of Trauma/Abuse: Patient denies trauma. Patient denies sexual, physical, and mental abuse. Social History: 12th grade; lives alone in [place], [place]; no children; single; monthly income -[employer]; no pending legal issues. Family History of Psychiatric Illness/Substance Abuse: Patient denies. Medications and Allergies Allergies Allergy/AdvReac Type Severity Reaction Status Date / Time No Known Allergies Allergy Verified 02/21/19 13:49 Home Medications Medication Instructions Recorded Confirmed Last Taken Type OLANzapine [ZyPREXA] 10 mg PO QHS 02/08/19 02/08/19 Unknown History Mental Status Exam - Vital signs Last Vital Signs Temp 98.3 F 02/22/19 09:22 Pulse 63 02/22/19 09:22 Resp 18 02/22/19 09:22 BP 106/52 02/22/19 09:22 Pulse Ox 99 02/22/19 09:22 - Exam Narrative exam: Mental Status Exam Appearance: in hospital attire Behavior: regular eye contact Speech: regular rate and tone Mood: "okay"; dysphoric Affect: blunted, constricted Thought Process: impoverished Thought Content: denies SI/HI's and VH's (hx); + AH's and paranoid delusions. Motor Activity: ambulatory Cognition: A/O x 3 Insight: variable Judgment: variable Results Result Diagrams: 02/21/19 15:23 02/21/19 15:23 Abnormal lab results 02/21/19 02/21/19 02/21/19 Range/Units 15:23 15: 15:23 WBC 2.8 L (4.5-11.0) K/mm3 MCHC 35 H (32-34) % RDW 13.0 L (13.2-15.2) % Monocytes % (Manual) 11.0 H (0.0-7.3) % Eosinophils % (Manual) 5.0 H (0.0-4.3) % Seg Neutrophils # Man 1.4 L (1.8-7.7) K/mm3 Lymphocytes # (Manual) 1.0 L (1.2-5.4) K/mm3 Ur Specific [place] (1.003-1.030) Salicylates < 0.3 L (2.8-20.0) mg/dL Acetaminophen < 5.0 L (10.0-30.0) ug/mL 02/21/19 Range/Units Unknown WBC (4.5-11.0) K/mm3 MCHC (32-34) % RDW (13.2-15.2) % Monocytes % (Manual) (0.0-7.3) % Eosinophils % (Manual) (0.0-4.3) % Seg Neutrophils # Man (1.8-7.7) K/mm3 Lymphocytes # (Manual) (1.2-5.4) K/mm3 Ur Specific [place] 1.031 H (1.003-1.030) Salicylates (2.8-20.0) mg/dL Acetaminophen (10.0-30.0) ug/mL All other labs normal. Assessment and Plan Assessment and plan: Impression: PPHx SCAD, bipolar type. Psychosis unspecified. Today the patient is calm and cooperative during the assessment. He endorses AH's and paranoid delusions. He denies SI/HI's and VH's. DDx: r/o schizophrenia Recommendation/Plan: 1. Continue 1013. 2. Start Zyprexa 10mg po QHS mood/psychosis. Discussed metabolic side effects. Patient verbalizes full understanding. Disposition: Patient accepted to [facility]. Awaiting transport time. Will staff with Dr. Santa Lopez.
[2019-02-23 07:50] VITALS: BP 105/62
--- NOTE | 2019-02-23 11:38 | Progress Note ---
Subjective - Reason for Consult Consult date: 02/23/19 Reason for consult: Psychiatry [id number] - Chief Complaint Chief complaint: " I cannot get the voices to go away" 28 year old male that presents to the emergency room with psychosis and suicidal ideations. This patient is known to me. Today the patient was clam during the assessment. He appeared to be responding some type of stimuli during the interview. He stated that , he canot get rid of the voices. He could not explain to me what the voices are saying. overall, the patient's answers to questions were vague. He denies SI/HI's and VH's. No indiation sof side effects of his medication. Mental Status Exam - Vital signs Last Vital Signs Temp 97.6 F 02/23/19 07:48 Pulse 69 02/23/19 07:48 Resp 18 02/23/19 07:48 BP 105/62 02/23/19 07:48 Pulse Ox 100 02/23/19 07:48 - Exam Narrative exam: MSE: Appearance: calm Behavior: poor eye contact Speech: regular rate and tone Mood: preoccupied Affect: flat Thought Process:somewhat circumstantial Thought Content: denies HI's and VH's Motor Activity: ambulatory Cognition: A/O x3 Insight: vague Judgment: poor Assessment and Plan Impression: Unspecified Psychosis. Today the patient was calm during the assessment. UDS is negative. DDx: Bipolar DO with psychosis, Schizophrenia, Schizoaffective DO Recommendation/Plan: Continue 1013 and Zyprexa 10 mg PO HS for psychosis. Discussed possible metabolic side effects of Zyprexa with the patient, he verbalized understanding. Dispo: The patient was accepted at [facility] for inpatient psy services. Will staff with Dr Santa Lopez.
== END 2019-02-23 11:49 ==
LOC: ED 13:46 → EEVIPCON 13:46 → ED 02-23 11:49
DX: F23 Brief psychotic disorder (principal); F17.200 Nicotine dependence, unspecified, uncomplicated; R45.851 Suicidal ideations; Z79.899 Other long term (current) drug therapy
CPT/HCPCS: 36415; 80053; 80307; 80320; 81001; 85007; 85025; 99285; G0480